=== PATIENT | female | born 1995 | race Two or more races ===

== ENCOUNTER 2016-09-19 15:27 | Emergency (ER) | payer OTHER ==
--- NOTE | 2016-09-19 16:14 | EDPHY ---
H & P Stated Complaint: R ear ache x 1 mo;wants to see if she has ear infection Time Seen by Provider: 09/19/16 15:55 HPI/ROS: CHIEF COMPLAINT: Right otalgia and decreased hearing x1 month HISTORY OF PRESENT ILLNESS: 21-year-old immunocompetent female in the ER via private vehicle complaining of right otalgia and decreased hearing for the past 1 month. No dizziness. No vertigo. No nausea or vomiting. No tinnitus. No barotrauma. No otorrhea. No foreign body insertion. She has also been experiencing mild nasal congestion and nonproductive cough. No chest pain. No abdominal pain. No rash. REVIEW OF SYSTEMS: A ten point review of systems was performed and is negative with the exception of the items mentioned in the HPI PAST MEDICAL & SURGICAL HISTORY: No pertinent medical or surgical history SOCIAL HISTORY: Intermittent marijuana PHYSICAL EXAM (Prior to examination, patient consented to physical exam, hands were washed and my usual and customary physical exam procedures followed) 1) GENERAL: Well-developed, well-nourished, alert and oriented. Appears to be in no acute distress. 2) HEAD: Normocephalic, atraumatic 3) HEENT: Pupils equal, round, reactive to light bilaterally. Sclera anicteric. Nasopharynx, oropharynx, clear, no lesions.No tonsillar enlargement or tonsillar exudate. Left ear: Clear EAC, tympanic membrane normal appearing with no bulging non erythema. Right ear: Complete cerumen impaction. No otorrhea. No pain with movement of the auricle. Bilateral mastoid nontender non boggy 4) NECK: Full range of motion, no meningeal signs. 5) LUNGS: Clear auscultation bilaterally, no wheezes, no rhonchi, no retractions. 6) HEART: Regular rate and rhythm, no murmur, no heave, no gallop. 7) ABDOMEN: No guarding, no rebound, no focal tenderness, 8) MUSCULOSKELETAL: No peripheral edema or discoloration. 9) BACK: No CVA tenderness 10) SKIN: No rash, no petechiae. 11) Psychiatric: Patient is oriented X 3, there is no agitation. DIFFERENTIAL DIAGNOSIS: In no particular include but limited to cerumen impaction, otitis media, otitis externa - Personal History LMP (Females 10-55): 1-7 Days Ago Current Tetanus Diphtheria and Acellular Pertussis (TDAP): Yes - Medical/Surgical History Other PMH: neg - Social History Smoking Status: Never smoked Constitutional: Initial Vital Signs Temperature (C) 36.7 C 09/19/16 15:42 Heart Rate 60 09/19/16 15:42 Respiratory Rate 16 09/19/16 15:42 Blood Pressure 108/62 09/19/16 15:42 O2 Sat (%) 97 09/19/16 15:42 O2 Delivery Mode Room Air Allergies/Adverse Reactions: No Known Allergies Allergy (Unverified 09/19/16 15:42) Home Medications: Medication Instructions Recorded Carbamide Peroxide [Debrox Ear 5 drop EACHEAR BID #1 btl 09/19/16 drops (OTC)] Medical Decision Making ED Course/Re-evaluation: this patient has complete cerumen impaction on the right side. I am unable to visualize the tympanic membrane. I offered to perform manual debridement of cerumen and demonstrated this procedure however states that she is unable to tolerate the discomfort with manual debridement. She has been informed that otitis media is not ruled out. No evidence of otitis externa. I recommend follow up with ENT. Today is Thursday. Recommend follow-up on Thursday. The meantime started on Debrox drops/. Departure - Departure Disposition: Home, Routine, Self-Care Clinical Impression: Right ear impacted cerumen Condition: Good Instructions: Cerumen Impaction (ED) Additional Instructions: Return to the ER if you develop new or worsening symptoms Referrals: Chandler Vergara MD [Medical Doctor] - 09/22/16 (Dr. Vergara and his partners are ear nose and throat specialists) Prescriptions: Carbamide Peroxide [Debrox Ear drops (OTC)] 5 drop EACHEAR BID #1 btl
[2016-09-19 16:25] VITALS: BP 117/72; PULSE 59; RESP 20; TEMP 98.2; O2SAT 95
== END 2016-09-19 16:24 | disposition home or self-care (01) ==
DX: H61.21 Impacted cerumen, right ear (principal)